=== PATIENT | female | born 1945 | race Caucasian/White ===

== ENCOUNTER 2022-07-12 10:48 | Observation (INO) | payer OTHER, SELFPAY ==
[2022-07-12] VITALS (22 sets, daily range): BP systolic 129–161; BP diastolic 60–95; PULSE 55–82; RESP 16–20; TEMP 35.7–36.9; O2SAT 93–100; BMI 24.4; BMI 25.5
--- NOTE | 2022-07-12 11:18 | ED_ITS ---
HPI - Dizziness General Time Seen by Provider: 11:19 Date Seen: 07/12/22 Chief Complaint: Dizziness/Vertigo Stated Complaint: numbness on RT side and dizzy Time Seen by Provider: 07/12/22 11:18 Source: patient, RN notes reviewed and old records reviewed Mode of arrival: ambulatory Limitations: no limitations History of Present Illness HPI Narrative: Steffi is a very pleasant 77-year-old female with a history of a TIA 25 years ago who comes to the emergency room with complaints of right-sided weakness. Patient is now company by her . Yesterday or TuesdayJuly 11 patient went to the bathroom at approximately 0200 hours and noticed that she was having trouble walking. She states she needed to hold onto the cavanaugh in order to get to and from the bathroom. She notes that at 0300 hours she realized that her equilibrium was quite off and she states that she is not as much dizzy as on balance. She notes that was mainly her right side. She states then she noticed that her right face appear to be somewhat numb and she thought maybe it was drooping. She then had the onset of some arm pain from the right elbow down. She notes that she and her talked and she slept most of the day yesterday. Throughout the day she noticed that the right-sided symptoms were slowly improving. She notes that the dizziness persisted and is still continuing today. We do ascertain that this is more of a lightheadedness/lost in space feeling rather than vertigo. She denies that the room is moving or spinning. Patient had previously been on baby aspirin daily but she ran out of it for approximately 1 and half weeks ago she had ordered it but has not come yet. Patient notes that she has been dealing with some congestion for the past couple a days and occasional shortness of breath with that congestion but denies any chest pain, irregular heartbeat. She has had a history of a stent in the past but no known arrhythmia especially atrial fibrillation. She has not had fever or chills. 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 She states that she has been doing physical therapy and they have noticed that. She notes that she is due for another injection. She does not smoke nor use alcohol. Patient notes that her TIA 25 years ago involved some weakness. She states that she was sitting at a desk and suddenly fell to the left. She does not remember much else about it but all of her symptoms resolved. She was seen at the [facility] following that but never did see Neurology. Related Data Allergies Allergy/AdvReac Type Severity Reaction Status Date / Time tegaderm Allergy Uncoded 07/12/22 11:06 Review of Systems Status of ROS: Reports: 10 or more systems reviewed and unremarkable except as noted in History and below Const: Reports: fatigue (Yesterday); Denies: fever or chills Eyes: Denies: change in vision, blurry vision, blind spots or light sensitivity ENMT: Denies: throat pain, neck pain, throat swelling, difficulty swallowing or vertigo Cardio: Reports: lightheadedness; Denies: chest pain, palpitations or swelling of feet/ankles Resp: Reports: cough; Denies: wheezing or stridor GI: Denies: abdominal pain, nausea, vomiting, diarrhea or difficulty swallowing : Denies: painful urination Musculo: Denies: neck pain Integ/Breast: Denies: rash Neuro: Reports: weakness in extremities, lack of coordination and dizziness; Denies: headache, numbness in extremities, vertigo, confusion or slurred speech Endo: Reports: fatigue (Yesterday) Allergy/Immuno: Denies: throat swelling or wheezing PFSH PFSH Social History Smoking Status: Never smoker Do you use any of these nicotine containing products: None Second hand tobacco smoke exposure: No How often do you have a drink containing alcohol: never How often do you have six or more drinks on one occasion: Never AUDIT-C Alcohol total score: 0 Non-prescribed substance use: denies use service: No Exam Narrative: Exam Narrative: Patient is alert and oriented. Very pleasant. Normal speech and mentation. EOM is full pupils are small but react to light. Visual pritchett are intact- initially I thought there was perhaps decrease in peripheral vision on the upper right quadrant but retesting does not confirm this. Face is symmetrical with eyebrow raise smile tongue is midline. Neck is supple. Right head rotation shows a very subtle weakness. Right upper ext extremity flexion shows a very subtle weakness. Romberg is negative. Finger to nose is intact. Abdomen soft nontender. Lower extremities show very subtle weakness on dorsiflexion have the right ankle. There is intermittent weakness with plantar flexion of the right ankle and great toe. Heart with regular rate and rhythm and lungs are clear to auscultation. Const: Vital Signs, click to edit/add: Vital Signs - 24 hr 07/12/22 11:06 07/12/22 11:21 07/12/22 11:30 Temperature 96.3 F L Pulse Rate 59 L 63 Pulse Rate [Pulse Oximeter] 63 Respiratory Rate 18 Blood Pressure Blood Pressure [Ri ght Upper Arm] 161/95 H Pulse Oximetry 97 98 98 Oxygen Delivery Me thod Room Air 07/12/22 11:32 07/12/22 12:03 07/12/22 12:16 Temperature Pulse Rate 64 55 L 61 Pulse Rate [Pulse Oximeter] Respiratory Rate Blood Pressure 142/76 H Blood Pressure [Ri ght Upper Arm] Pulse Oximetry 98 96 95 Oxygen Delivery Me thod 07/12/22 12:30 07/12/22 12:36 07/12/22 12:54 Temperature Pulse Rate 60 62 62 Pulse Rate [Pulse Oximeter] Respiratory Rate Blood Pressure Blood Pressure [Ri ght Upper Arm] Pulse Oximetry 96 95 96 Oxygen Delivery Me thod 07/12/22 13:03 07/12/22 13:15 07/12/22 13:30 Temperature Pulse Rate 57 L 60 Pulse Rate [Pulse Oximeter] Respiratory Rate Blood Pressure Blood Pressure [Ri ght Upper Arm] Pulse Oximetry 100 96 98 Oxygen Delivery Me thod 07/12/22 14:18 07/12/22 14:30 07/12/22 14:36 Temperature Pulse Rate 75 57 L 60 Pulse Rate [Pulse Oximeter] Respiratory Rate Blood Pressure Blood Pressure [Ri ght Upper Arm] Pulse Oximetry 93 96 96 Oxygen Delivery Nj thod 07/12/22 14:45 07/12/22 15:42 Temperature 97 F L Pulse Rate 60 Pulse Rate [Pulse Oximeter] Respiratory Rate 18 Blood Pressure Blood Pressure [Ri ght Upper Arm] 153/73 H Pulse Oximetry 97 97 Oxygen Delivery Me thod Room Air Documenting provider has reviewed patient's vital signs: yes Eye: Direct Ophthalmoscopy: no photophobia Course Course Hospital Course: At this time I am fearful that patient experienced stroke yesterday morning. We are obviously greater than 30 hours out from the initial event. Will obtain head CT, plan for aspirin if that is negative for any hemorrhagic event and then will pursue MRI of the brain. Patient does tell me that she is claustrophobic and therefore will pre treat with Ativan. Will leave her on the library monitor and draw labs to include CBC, comprehensive, CRP, COVID, troponin and chest x- ray. Reevaluation(s) Reevaluation #1: Patient has continued to remain stable. No worsening symptoms. Consultations Consultation #1: At the pleasure of speaking to Dr. Tung Vazquez Neurology. 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 Recommends loading dose of Plavix at 300 mg as well as aspirin 324 mg p.o. suggests aspirin and Plavix to be continued for 30 days. Vital Signs Vital signs: Initial Vital Signs Temperature 96.3 F L 07/12/22 11:06 Temperature Source Temporal Artery Scan 07/12/22 11:06 Pulse Rate 63 07/12/22 11:06 Pulse Rhythm Regular 07/12/22 11:06 Respiratory Rate 18 07/12/22 11:06 Blood Pressure 161/95 H 07/12/22 11:06 Blood Pressure Mean 117 H 07/12/22 11:06 Blood Pressure Position Supine 07/12/22 11:06 Pulse Oximetry 97 07/12/22 11:06 Oxygen Delivery Method Room Air 07/12/22 11:06 Vital Signs Temperature 96.3 F L 07/12/22 11:06 Pulse Rate 63 07/12/22 11:06 Respiratory Rate 18 07/12/22 11:06 Blood Pressure 161/95 H 07/12/22 11:06 Pulse Oximetry 97 07/12/22 11:06 Oxygen Delivery Method Room Air 07/12/22 11:06 Temperature 97 F L 07/12/22 15:42 Pulse Rate 60 07/12/22 14:45 Respiratory Rate 18 07/12/22 15:42 Blood Pressure 153/73 H 07/12/22 15:42 Pulse Oximetry 97 07/12/22 15:42 Oxygen Delivery Method Room Air 07/12/22 15:42 MDM - Dizziness MDM Narrative Medical decision making narrative: 1. [id number]-[id number] weakness is very subtle and per patient report improving from yesterday morning. EKG sinus rhythm without any arrhythmia. CT/CTA without any acute findings. MR without any acute stroke. 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 Patient noted to have stopped her aspirin a week and a half ago. She was given aspirin 324 mg p.o. after the negative CT. She will now have Plavix 300 mg loading dose. Patient will be admitted to the hospital per neurologist suggestion. They do not feel that there is a need for echocardiogram. EKG reassuring. Recommends 30 days of Plavix 75 mg an aspirin 324 mg. After 30 days may decrease to baby aspirin daily. 2. Disposition -admit to observation. Dr. Francesco siddiqi hospitalist on-call. Medical Records Attestation: I reviewed the patient's medical records. Lab Data Attestation: I reviewed the patient's lab results. Labs: Lab Results 07/12/22 07/12/22 Range/Units 11:46 12:00 WBC 5.12 (4.50-11.00) K/uL RBC 4.53 (4.00-5.20) m/uL Hgb 13.7 (12.0-16.0) gm/dL Hct 40.5 (33.0-51.0) % MCV 89 (80-100) fL MCH 30 (26-34) pg MCHC 34 (32-36) gm/dL RDW Coeff of Darlyn 12.3 (11.5-15.5) % Plt Count 153 (140-440) K/uL Neut % (Auto) 39.3 L (42.0-72.0) % Lymph % (Auto) 44.7 H (20-44) % Deuel % (Auto) 8.2 (0.0-11.0) % Eos % (Auto) 7.2 H (0.0-7.0) % Baso % (Auto) 0.4 (0.0-3.0) % Neut # (Auto) 2.00 (1.7-7.0) K/uL Lymph # (Auto) 2.30 (0.90-2.90) K/uL Deuel # (Auto) 0.40 (0.00-0.90) K/UL Eos # (Auto) 0.40 (0.00-0.50) K/uL Baso # (Auto) 0.02 (0.00-0.30) K/uL Sodium 138 (135-149) mmol/L Potassium 4.5 (3.6-5.1) mmol/L Chloride 103 (96-114) mmol/L Carbon Dioxide 27 (20-32) mmol/L BUN 12 (7-30) mg/dL Creatinine 0.7 (0.5-1.5) mg/dL Estimated Creat Clear 45.50 Estimated GFR 90 ml/min Glucose 125 H (60-115) mg/dL Calcium 9.3 (8.4-10.6) mg/dL Total Bilirubin 1.0 (0.1-1.5) mg/dL AST 24 (12-35) U/L ALT 20 (4-35) U/L Alkaline Phosphatase 74 (40-150) U/L C-Reactive Protein 0.5 (0.5-1.0) mg/dL Total Protein 7.8 (6.0-8.3) g/dL Albumin 4.8 (3.3-5.0) g/dL SARS-CoV-2 (PCR) Negative SARS-CoV-2 (Negative) Influenza Type A (PCR) Negative PCR FLU A (Negative) Influenza Type B (PCR) Negative PCR FLU B (Negative) POC Troponin I 0.00 L (0.01-0.04) ng/ml Imaging Data Chest x-ray: Attestation: I have reviewed the pertinent imaging results. My impression: No evidence widened mediastinum or pneumonia Radiologist's impression: HEART AND MEDIASTINUM: The heart size is normal. The mediastinal contour appears normal for patient age. LUNGS AND PLEURAL SPACES: The lungs appear normal.The pleural spaces are unremarkable. OSSEOUS STRUCTURES: Age-appropriate appearance. No acute focal finding. IMPRESSION: Normal single-view chest radiograph. CT scan - head: Attestation: I have reviewed the pertinent imaging results. My impression: No acute bleed on my read Radiologist's impression: The brain shows no sign of mass lesion, mass effect, hemorrhage, or edema. There are involutional changes. There is mild cortical atrophy and there is mild white matter disease. There is no hydrocephalus. Nonacute appearing subcortical lacunar infarct in the anterior limb of the right internal capsule similar to the remote exam. The visualized portions of the orbits are normal in appearance. The osseous structures are normal in appearance with no sign of abnormality in the skull base or calvarium. IMPRESSION: Involutional changes consisting of atrophy and white matter disease. Nonacute subcortical infarct. No acute appearing finding when compared to January 25, 2012 there There is scattered intracranial atherosclerotic disease without significant stenosis. There is normal opacification of the intracranial vasculature. There is no large vessel occlusion. No aneurysm is identified. IMPRESSION: Unremarkable head CTA. No large vessel occlusion. MRI - head: Attestation: I have reviewed the pertinent imaging results. Radiologist's impression: Prominence of the ventricles and sulci compatible with minimal diffuse cerebral volume loss. No mass effect or midline shift. Scattered and patchy FLAIR hyperintensities in the supratentorial white matter and chichi, typical for [id number]-ssqhvtod chronic microvascular ischemic changes. No diffusion restriction to suggest acute infarction. No intracranial hemorrhage or pathologic extra-axial fluid collection. The major arterial flow voids of the skullbase are preserved. Thinning of the ocular lenses. Minimal paranasal sinus mucosal thickening. Trace right mastoid fluid. IMPRESSION: 1. No acute infarction, mass effect, or intracranial hemorrhage. 2. Tedf-dq-xxpzricc chronic microvascular ischemic changes. Neck angiogram: Attestation: I have reviewed the pertinent imaging results. Radiologist's impression: There is carotid atherosclerosis bilaterally. There is a severe stenosis at the origin of the right ICA (70% by NASCET). There is no significant left carotid artery stenosis or dissection. There is a severe left vertebral artery origin stenosis. There is no significant right vertebral artery stenosis or dissection. The soft tissues of the neck are within normal limits. Degenerative changes are noted in the cervical spine. IMPRESSION: 1. Severe right ICA origin stenosis, 70% by NASCET. 2. Severe left vertebral artery origin stenosis. ECG Data Attestation: I personally reviewed and interpreted this ECG as follows: ECG interpretation date: 07/12/22 Interpretation: EKG 1. By my read shows normal sinus rhythm at a rate of 60. Do not note any acute ST or T-wave changes. QT PA intervals within normal limits. Discharge Plan Discharge Clinical Impression: Acute CVA (cerebrovascular accident), Right sided weakness Patient Disposition: Admitted As Inpatient Condition: Unchanged
--- NOTE | 2022-07-12 11:46 | CRLHL7_ITS ---
For Patients: As a result of the Century Cures Act, medical imaging exams and procedure reports are released immediately into your electronic medical record. You may view this report before your referring provider. If you have questions, please contact your health care provider. INDICATION: Clinical signs and symptoms of stroke/TIA. Right facial and arm numbness times 24 hours, getting better. COMPARISON: January 25, 2012 TECHNIQUE: CT examination of the head was performed as axial sections without intravenous contrast. Images were obtained from the vertex of the skull through the skull base. Please note that all CT scans at this facility use dose modulation, iterative reconstruction, and/or weight-based dosing when appropriate to reduce radiation dose to as low as reasonably achievable. FINDINGS: The brain shows no sign of mass lesion, mass effect, hemorrhage, or edema. There are involutional changes. There is mild cortical atrophy and there is mild white matter disease. There is no hydrocephalus. Nonacute appearing subcortical lacunar infarct in the anterior limb of the right internal capsule similar to the remote exam. The visualized portions of the orbits are normal in appearance. The osseous structures are normal in appearance with no sign of abnormality in the skull base or calvarium. IMPRESSION: Involutional changes consisting of atrophy and white matter disease. Nonacute subcortical infarct. No acute appearing finding when compared to January 25, 2012 there Please note that all CT scans at this facility use dose modulation, iterative reconstruction, and/or weight-based dosing when appropriate to reduce radiation dose to as low as reasonably achievable. Dictated by Gilmer Corral MD @ 07/12/2022 1:10:42 PM (Electronically Signed)
--- NOTE | 2022-07-12 11:46 | CRLHL7_ITS ---
For Patients: As a result of the Century Cures Act, medical imaging exams and procedure reports are released immediately into your electronic medical record. You may view this report before your referring provider. If you have questions, please contact your health care provider. INDICATION: Acute stroke, off balance, right facial and arm numbness. TECHNIQUE: CTA head with contrast bolus tracking, 3D angiographic rendering using maximum intensity projection (MIP) and images permanently archived. FINDINGS: There is scattered intracranial atherosclerotic disease without significant stenosis. There is normal opacification of the intracranial vasculature. There is no large vessel occlusion. No aneurysm is identified. IMPRESSION: Unremarkable head CTA. No large vessel occlusion. Please note that all CT scans at this facility use dose modulation, iterative reconstruction, and/or weight-based dosing when appropriate to reduce radiation dose to as low as reasonably achievable. Dictated by Ranulfo Dias MD @ 07/12/2022 1:56:39 PM (Electronically Signed)
--- NOTE | 2022-07-12 11:46 | CRLHL7_ITS ---
For Patients: As a result of the Century Cures Act, medical imaging exams and procedure reports are released immediately into your electronic medical record. You may view this report before your referring provider. If you have questions, please contact your health care provider. INDICATION: Acute stroke, off balance, right facial and arm numbness. TECHNIQUE: CTA neck with contrast bolus tracking, 3D angiographic rendering using maximum intensity projection (MIP) and images permanently archived. FINDINGS: There is carotid atherosclerosis bilaterally. There is a severe stenosis at the origin of the right ICA (70% by NASCET). There is no significant left carotid artery stenosis or dissection. There is a severe left vertebral artery origin stenosis. There is no significant right vertebral artery stenosis or dissection. The soft tissues of the neck are within normal limits. Degenerative changes are noted in the cervical spine. IMPRESSION: 1. Severe right ICA origin stenosis, 70% by NASCET. 2. Severe left vertebral artery origin stenosis. Please note that all CT scans at this facility use dose modulation, iterative reconstruction, and/or weight-based dosing when appropriate to reduce radiation dose to as low as reasonably achievable. Dictated by Ranulfo Dias MD @ 07/12/2022 2:04:33 PM (Electronically Signed)
--- NOTE | 2022-07-12 11:57 | CRLHL7_ITS ---
For Patients: As a result of the Century Cures Act, medical imaging exams and procedure reports are released immediately into your electronic medical record. You may view this report before your referring provider. If you have questions, please contact your health care provider. INDICATION: Neurologic abnormalities COMPARISON: July 28, 2018 TECHNIQUE: A single view of the chest was acquired FINDINGS: TUBES AND LINES: None. HEART AND MEDIASTINUM: The heart size is normal. The mediastinal contour appears normal for patient age. LUNGS AND PLEURAL SPACES: The lungs appear normal.The pleural spaces are unremarkable. OSSEOUS STRUCTURES: Age-appropriate appearance. No acute focal finding. IMPRESSION: Normal single-view chest radiograph. Dictated by Gilmer Corral MD @ 07/12/2022 2:09:31 PM (Electronically Signed)
[2022-07-12 12:27] LABS: Albumin* 4.8 g/dL (3.3-5.0); Basophils Absolute Auto 0.02 K/uL (0.00-0.30); Basophils Percent Auto 0.4 % (0.0-3.0); Chloride* 103 mmol/L (96-114); Eosinophils Percent Auto 7.2 % (0.0-7.0); Hematocrit 40.5 % (33.0-51.0); Hemoglobin* 13.7 gm/dL (12.0-16.0); Immature Granulocytes Abs Auto 0.01 K/uL (0.00-0.30); Immature Granulocytes Pct Auto 0.2 %; Lymphocytes Percent Auto 44.7 % (20-44); Mean Corpuscular HGB Conc 34 gm/dL (32-36); Mean Corpuscular Hemoglobin 30 pg (26-34); Mean Corpuscular Volume 89 fL (80-100); Monocytes Percent Auto 8.2 % (0.0-11.0); Neutrophils Percent Auto 39.3 % (42.0-72.0); Platelet Count* 153 K/uL (140-440); RDW Coefficient of Variation % 12.3 % (11.5-15.5); Red Blood Count 4.53 m/uL (4.00-5.20); Sodium* 138 mmol/L (135-149); White Blood Count* 5.12 K/uL (4.50-11.00)
[2022-07-12 12:28] LABS: Potassium* 4.5 mmol/L (3.6-5.1); Slide Review Reflex No
[2022-07-12 12:30] LABS: Aspartate Amino Transferase* 24 U/L (12-35); Carbon Dioxide* 27 mmol/L (20-32); Creatinine* 0.7 mg/dL (0.5-1.5); Estimated Glomerular Filt Rate 90 ml/min
[2022-07-12 12:31] LABS: Alanine Aminotransferase* 20 U/L (4-35); Alkaline Phosphatase* 74 U/L (40-150); Blood Urea Nitrogen* 12 mg/dL (7-30); Calcium* 9.3 mg/dL (8.4-10.6); Glucose* 125 mg/dL (60-115); Total Protein* 7.8 g/dL (6.0-8.3)
[2022-07-12 12:33] LABS: C Reactive Protein* 0.5 mg/dL (0.5-1.0)
[2022-07-12 12:49] LABS: PCR FLU A Negative PCR FLU A (Negative); PCR FLU B Negative PCR FLU B (Negative)
[2022-07-12 12:59] LABS: SARS PCR* Negative SARS-CoV-2 (Negative)
--- NOTE | 2022-07-12 13:11 | CRLHL7_ITS ---
For Patients: As a result of the Century Cures Act, medical imaging exams and procedure reports are released immediately into your electronic medical record. You may view this report before your referring provider. If you have questions, please contact your health care provider. INDICATION: Right-sided weakness. TECHNIQUE: Multiplanar multisequence noncontrast MR images acquired through the brain. COMPARISON: CT brain 07/12/2022. FINDINGS: Prominence of the ventricles and sulci compatible with minimal diffuse cerebral volume loss. No mass effect or midline shift. Scattered and patchy FLAIR hyperintensities in the supratentorial white matter and chichi, typical for brjo-qd-mtgeyacu chronic microvascular ischemic changes. No diffusion restriction to suggest acute infarction. No intracranial hemorrhage or pathologic extra-axial fluid collection. The major arterial flow voids of the skullbase are preserved. Thinning of the ocular lenses. Minimal paranasal sinus mucosal thickening. Trace right mastoid fluid. IMPRESSION: 1. No acute infarction, mass effect, or intracranial hemorrhage. 2. Aibe-wd-gmilngpt chronic microvascular ischemic changes. Dictated by Phil Forde MD @ 07/12/2022 2:44:04 PM (Electronically Signed)
[2022-07-12] MEDS: ASPIRIN 81 MG TAB.CHEW 324 MG PO (13:26)
[2022-07-12] MEDS: LORazepam 2 MG/ML inj 0.5 MG IVP (13:36)
[2022-07-12] MEDS: CLOPIDOGREL 300 MG TABLET PO (16:17)
--- NOTE | 2022-07-12 16:37 | ED.NURSE ---
Gave report to Bhavani KNOTT, accepted to Med- surg floor. Pt remains vitally stable, no compliants. Denies pain and nausea, denies numbness. Saline locked IV on right side.
--- NOTE | 2022-07-12 18:16 | PM.IMHP1 ---
Hospitalist- H&P: TORY History of Present Illness Date Seen: 07/12/22 Chief complaint: numbness on RT side and dizzy Narrative: Steffi Ron is a 77 year old right-handed female with coronary artery disease and diabetes admitted through the emergency department with 1 and half day history of poor balance and altered sensation in right arm and right face. Patient reports that approximately 1:00 a.m. on Tuesday, 1 and half days ago, she awoke and went to the bathroom. When she did this she felt like her balance was very poor. She had hold onto the cavanaugh and to the counter in the bathroom for balance. About 2 hours later she noticed that she had altered sensation in the right side of her face she did not notice that she had a facial droop. Her did not notice a facial droop but she reports was quite dark during the night and may have been missed. She said her writes face felt different, possibly numb. She felt that she was having some trouble finding words. She did not have any trouble slurring her speech. She also noted that time that her right forearm was causing some discomfort. She is not aware that there was definite weakness she could move her elbow and her wrist on the right and she did not check to see if it was weaker than the left. It was primarily a discomfort that she had there. She did not have any right leg symptoms. During the day yesterday she was aware that she was very tired and spent much the day in bed because she was so sleepy. During the day the symptoms noted above largely resolved. She felt like her balance was getting better. The sensation her face seemed to be back to normal. She did not have any obvious facial droop or weakness. She did note that she developed a pain over the right gnosticism going into the right jaw. This is relatively of abrupt onset and is also resolved. She is not having pain with chewing. She has not previously had a temporal headache. No visual disturbance. No jaw claudication. Her right arm is also normal and she does not feel like she has any weakness in her right arm at this time. She has a remote history of a TIA diagnosed at least 25 years ago. She recalls that she was feeling quite dizzy. She fell out of her chair and landed on the floor. She had a headache at that time. She does not recall getting any further evaluation. She was not hospitalized. She did not see a specialist or get brain imaging. She is not aware of any long-term affects from this. She does have a history of lumbar disc disease and does have lower extremity symptoms from this. Her MRI from last month suggests primarily left-sided radiculopathy. She does have a history of visual loss primarily involving the right eye. Multiple factors of gone into this including a right I branch retinal artery occlusion and ongoing diabetic retinopathy and floaters. She had surgery to remove floaters from her right eye recently with improvement in her vision. She checked her blood sugar once this weekend with a reading of about 150. Blood sugars have otherwise been generally well controlled. Her only diabetes treatment at this time is metformin. Review of Systems Narrative: She reports no other recent illness or injury. Complete review of systems otherwise unremarkable except as noted above [facility] Medical History (Updated 07/12/22 @ 18:41 by Paco Moseley MD) Allergic rhinitis ?J30.9 - Allergic rhinitis, unspecified (ICD-10) Branch retinal artery occlusion ?H34.239 - Retinal artery branch occlusion, unspecified eye (ICD-10) Diabetes mellitus ?E11.9 - Type 2 diabetes mellitus without complications (ICD-10) Diabetic retinopathy ?E11.319 - Type 2 diabetes mellitus with unspecified diabetic retinopathy without macular edema (ICD-10) Gastroesophageal reflux disease ?K21.9 - Gastro-esophageal reflux disease without esophagitis (ICD-10) Hyperlipidemia ?E78.5 - Hyperlipidemia, unspecified (ICD-10) Hypertension ?I10 - Essential (primary) hypertension (ICD-10) Lumbar degenerative disc disease ?M51.36 - Other intervertebral disc degeneration, lumbar region (ICD-10) Nasal bone fx-closed ?S02.2XXA - Fracture of nasal bones, initial encounter for closed fracture (ICD-10) Non-STEMI (non-ST elevated myocardial infarction) ?I21.4 - Non-ST elevation (NSTEMI) myocardial infarction (ICD-10) Normal esophagogastroduodenoscopy (EGD) ?Z01.89 - Encounter for other specified special examinations (ICD-10) Restless legs ?G25.81 - Restless legs syndrome (ICD-10) Stress incontinence ?N39.3 - Stress incontinence (female) (male) (ICD-10) Surgical History (Updated 07/12/22 @ 18:13 by Paco Moseley MD) H/O arthroscopic knee surgery ?Z98.890 - Other specified postprocedural states (ICD-10) H/O colonoscopy ?Z98.890 - Other specified postprocedural states (ICD-10) History of appendectomy ?Z90.49 - Acquired absence of other specified parts of digestive tract (ICD-10) History of cataract surgery ?Z98.49 - Cataract extraction status, unspecified eye (ICD-10) History of hysterectomy ?Z90.710 - Acquired absence of both cervix and uterus (ICD-10) History of tonsillectomy ?Z90.89 - Acquired absence of other organs (ICD-10) Family History (Updated 07/12/22 @ 18:32 by Paco Moseley MD) Mother Uterine cancer Dementia Father Dementia Social History (Updated 07/12/22 @ 18:33 by Paco Moseley MD) Narrative: She lives with her . 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 They live in [place]. She does not drink alcohol. She has a remote history of smoking Smoking Status: Never smoker Do you use any of these nicotine containing products: None Second hand tobacco smoke exposure: No How often do you have a drink containing alcohol: never How often do you have six or more drinks on one occasion: Never AUDIT-C Alcohol total score: 0 Non-prescribed substance use: denies use service: No Meds Home Medications and Allergies Home Medications Medication Instructions Recorded Confirmed Type aspirin 81 mg tablet,delayed 81 mg PO DAILY 07/12/22 07/12/22 History release cyclobenzaprine 5 mg tablet 5 mg PO 3XD PRN 07/12/22 07/12/22 History cyclosporine 0.05 % eye drops in a 1 drp ophthalmic (eye) BID 07/12/22 07/12/22 History dropperette (Restasis) losartan 25 mg tablet 25 mg PO DAILY 07/12/22 07/12/22 History metformin 500 mg tablet 1,000 mg PO BID 07/12/22 07/12/22 History metoprolol tartrate 25 mg tablet 25 mg PO BID 07/12/22 07/12/22 History pantoprazole 40 mg tablet,delayed 40 mg PO DAILY 07/12/22 07/12/22 History release rosuvastatin 40 mg tablet 40 mg PO QPM 07/12/22 07/12/22 History sucralfate 1 gram tablet (Carafate) 1 g PO ACHS 07/12/22 07/12/22 History Allergies Allergy/AdvReac Type Severity Reaction Status Date / Time tegaderm Allergy Uncoded 07/12/22 11:06 Exam Narrative: Exam Narrative: She is alert and appears in no distress. She gives her own history. She is quite fluent. No obvious slurring of her speech or difficulty with word finding or comprehension. Head is without evidence of trauma. Eyes are normal. Status post cataract surgery. Pupils are equal round reactive to light. Extraocular movements are full. Visual pritchett are intact. She has no facial asymmetry. She has no apparent numbness in either 5 side of her face. Tongue is midline and has normal movement. Oropharynx is normal. She has no tenderness over her temporal arteries, temples or jaw on either side. Neck is supple without mass or adenopathy. Respirations are clear to auscultation. Breathing is unlabored. Cardiovascular: S1, S2, 2/6 systolic ejection murmur heard best at the right upper sternal border. No gallop or rub. Regular rate and rhythm. Abdomen: Bowel sounds active. Abdomen is soft without tenderness or mass. Upper extremities are without obvious trauma. She moves upper extremities well. She has full and symmetric strength in shoulder flexion and extension, elbow flexion and extension, wrist flexion extension, finger extension and [place] strength bilaterally. Finger nose finger is equal an accurate bilaterally. No pronator drift. Intact sensation in both upper extremities. Rapid finger movements are symmetric. She does note that touching her thumb to her fingertips on the right hand causes discomfort at the base of her right thumb. No apparent weakness there. Lower extremity examination notable for equal and full strength in hip flexion , knee flexion and extension, ankle dorsiflexion and plantar flexion and great toe dorsiflexion bilaterally. Intact sensation in both lower extremities. Heel-hankins symmetric and normal. Intact pedal pulses. Const: Vital Signs, click to edit/add: Vital Signs - 24 hr 07/12/22 11:06 07/12/22 11:21 07/12/22 11:30 Temperature 96.3 F L Pulse Rate 59 L 63 Pulse Rate [Pulse Oximeter] 63 Respiratory Rate 18 Blood Pressure Blood Pressure [Ri ght Upper Arm] 161/95 H Pulse Oximetry 97 98 98 Oxygen Delivery Me thod Room Air 07/12/22 11:32 07/12/22 12:03 07/12/22 12:16 Temperature Pulse Rate 64 55 L 61 Pulse Rate [Pulse Oximeter] Respiratory Rate Blood Pressure 142/76 H Blood Pressure [Ri ght Upper Arm] Pulse Oximetry 98 96 95 Oxygen Delivery Tn thod 07/12/22 12:30 07/12/22 12:36 07/12/22 12:54 Temperature Pulse Rate 60 62 62 Pulse Rate [Pulse Oximeter] Respiratory Rate Blood Pressure Blood Pressure [Ri ght Upper Arm] Pulse Oximetry 96 95 96 [facility] 07/12/22 13:03 07/12/22 13:15 07/12/22 13:30 Temperature Pulse Rate 57 L 60 Pulse Rate [Pulse Oximeter] Respiratory Rate Blood Pressure Blood Pressure [Ri ght Upper Arm] Pulse Oximetry 100 96 98 [facility] 07/12/22 14:18 07/12/22 14:30 07/12/22 14:36 Temperature Pulse Rate 75 57 L 60 Pulse Rate [Pulse Oximeter] Respiratory Rate Blood Pressure Blood Pressure [Ri ght Upper Arm] Pulse Oximetry 93 96 96 [facility] 07/12/22 14:45 07/12/22 15:42 07/12/22 16:18 Temperature 97 F L Pulse Rate 60 62 Pulse Rate [Pulse Oximeter] Respiratory Rate 18 20 Blood Pressure 129/65 Blood Pressure [Ri ght Upper Arm] 153/73 H Pulse Oximetry 97 97 98 [facility] Documenting provider has reviewed patient's vital signs: yes Hospitalist - H&P: Result Labs Labs: Short CBC 07/12/22 Range/Units 12:00 WBC 5.12 (4.50-11.00) K/uL Hgb 13.7 (12.0-16.0) gm/dL Hct 40.5 (33.0-51.0) % Plt Count 153 (140-440) K/uL BMP 07/12/22 12:00 Sodium 138 Potassium 4.5 Chloride 103 Carbon Dioxide 27 BUN 12 Creatinine 0.7 Glucose 125 H Calcium 9.3 Liver Function 07/12/22 Range/Units 12:00 Total Bilirubin 1.0 (0.1-1.5) mg/dL AST 24 (12-35) U/L ALT 20 (4-35) U/L Alkaline Phosphatase 74 (40-150) U/L Albumin 4.8 (3.3-5.0) g/dL Imaging CT scan - head: Radiologist's impression: Acute stroke, off balance, right facial and arm numbness. TECHNIQUE: CTA head with contrast bolus tracking, 3D angiographic rendering using maximum intensity projection (MIP) and images permanently archived. FINDINGS: There is scattered intracranial atherosclerotic disease without significant stenosis. There is normal opacification of the intracranial vasculature. There is no large vessel occlusion. No aneurysm is identified. IMPRESSION: Unremarkable head CTA. No large vessel occlusion. MR Brain: Radiologist's impression: NDICATION: Right-sided weakness. TECHNIQUE: Multiplanar multisequence noncontrast MR images acquired through the brain. COMPARISON: CT brain 07/12/2022. FINDINGS: Prominence of the ventricles and sulci compatible with minimal diffuse cerebral volume loss. No mass effect or midline shift. Scattered and patchy FLAIR hyperintensities in the supratentorial white matter and chichi, typical for [id number] chronic microvascular ischemic changes. No diffusion restriction to suggest acute infarction. No intracranial hemorrhage or pathologic extra-axial fluid collection. The major arterial flow voids of the skullbase are preserved. Thinning of the ocular lenses. Minimal paranasal sinus mucosal thickening. Trace right mastoid fluid. IMPRESSION: 1. No acute infarction, mass effect, or intracranial hemorrhage. 2. [id number] chronic microvascular ischemic changes. Assessment and Plan Assessment and plan (1) Acute CVA (cerebrovascular accident): Problem comment: Dr. Burgos spoke with Stroke Neurology at [facility]. They felt it is possible that she has a very small pontine stroke despite normal neuro imaging. They recommended observation overnight. My evaluation did not show any significant focal deficits. Will treat as a stroke patient with aspirin and Plavix, statin, permissive hypertension for the next couple days. Stroke Neurology did not think an echocardiogram is needed. This does not appear to be cardioembolic stroke. They did recommend aspirin 325 mg daily plus Plavix 75 mg daily for 1 month followed by aspirin 81 mg daily indefinitely. Status: Acute (2) Hypertension: Problem comment: Permissive hypertension Status: Acute (3) Diabetes mellitus: Problem comment: Apparently has been well controlled. Status: Acute Plan Admit overnight for possibility of a small pontine stroke not seen on imaging. Stroke Neurology is concerned about possibility of deterioration given this type of stroke. Will monitor overnight. If doing well probably discharge in the morning. Stroke management as outlined above. Total time spent is 75 minutes, 50 minutes in coordination of care discussing with patient and other providers ongoing evaluation management of stroke
--- NOTE | 2022-07-12 19:59 | PC.NURSE ---
Addendum entered by Florentino Whitley RN 07/12/22 20:02: Last BM was this morning, reports diarrhea but it is new and only x1. Usually takes eye drops but thye are at home. Has history of TIA 25 years ago with sent placed. Original Note: [id number] Shift Summary? 256 L.F.?77 R sided weakness and dizziness? Obs. Pt?s symptoms started at 3am Tuesday 07/11. At this point denies weakness. Strength and facial expressions symmetrical. Some dizziness with ambulation. Reminded to call to go to bathroom. Vitals stable. Room air. DM2, therapeutic diet. No SSI or BG checks. Has chronic backpain for pinched discs- takes Flexeril. Requesting melatonin for this evening. Family at bedside. Oriented x4. No skin concerns. Denies pain. No numbness or tingling. No nausea or vomiting.?
--- NOTE | 2022-07-12 20:10 | PC.NURSE ---
[id number] Shift Summary? 256 L.F.?77 R sided weakness and dizziness? Obs. Pt?s symptoms started at 3am Tuesday 07/11. Dizzy while ambulating to bathroom and feeling week. At this point denies weakness. Strength and facial expressions symmetrical. Had TIA 25 years ago with stint placed.?Some dizziness with ambulation. Reminded to call to go to bathroom. Vitals stable. Room air. DM2, therapeutic diet. No SSI or BG checks. Has chronic backpain for pinched discs- takes Flexeril. Requesting melatonin for this evening. Family at bedside. Oriented x4. No skin concerns. Denies pain. No numbness or tingling. No nausea or vomiting.? Had diarrhea this morning which is new. Has lost 20 pounds in last 6 months.?
[2022-07-12] MEDS: SUCRALFATE 1 GM TABLET PO (20:36)
[2022-07-12] MEDS: ROSUVASTATIN CALCIUM 10 MG TABLET 40 MG PO (20:36)
[2022-07-12] MEDS: MELATONIN 3 MG TABLET PO (20:36)
[2022-07-12] MEDS: METFORMIN 500 MG TABLET 1000 MG PO (20:36)
[2022-07-12] MEDS: CYCLOBENZAPRINE HCL 10 MG TABLET 5 MG PO (20:36)
[2022-07-12] MEDS: SODIUM CHLORIDE 0.9 % (FLUSH) 10 ML SYRINGE 5 ML IVF (20:37)
--- NOTE | 2022-07-12 21:58 | PC.NURSE ---
Pt calm and cooperative during shift ([id number]). Pt up to bathroom with SBA. Pt had no complaints of pain. Pt alert and oriented. Pt has had no weakness during shift.
[2022-07-13 03:05] VITALS: BP 149/71; PULSE 82; RESP 14; TEMP 36.4; O2SAT 93
--- NOTE | 2022-07-13 06:31 | PC.NURSE ---
Pt alert and oriented x3. Afebrile. Pt denies pain, SOB, chest pain, and N/V. Pt did report 2/10 headache around 0300, PRN Tylenol offered, pt refused.?Pt is up SBA, voiding, tolerating regular diet.?
[2022-07-13 06:59] LABS: Glucose* 137 mg/dL (60-115)
[2022-07-13] MEDS: SUCRALFATE 1 GM TABLET PO (07:01)
[2022-07-13 07:28] LABS: Erythrocyte SedimentationRate* 4 mm/hr (2-20)
[2022-07-13 08:00] VITALS: BP 126/66; PULSE 81; RESP 16; TEMP 36.6; O2SAT 93
[2022-07-13] MEDS: OMEPRAZOLE 20 MG CAPSULE DR 40 MG PO (09:19)
[2022-07-13] MEDS: METFORMIN 500 MG TABLET 1000 MG PO (09:19)
[2022-07-13] MEDS: ASPIRIN EC 325 MG TABLET PO (09:20)
[2022-07-13] MEDS: CLOPIDOGREL 75 MG TABLET PO (09:20)
[2022-07-13] MEDS: SODIUM CHLORIDE 0.9 % (FLUSH) 10 ML SYRINGE 5 ML IVF (09:21)
[2022-07-13 11:00] VITALS: BP 133/70; PULSE 85; RESP 18; TEMP 36.4; O2SAT 95
--- NOTE | 2022-07-13 14:35 | PM.DS1 ---
DS: Providers Provider Time Seen by Provider: 09:38 Date Seen: 07/13/22 Date of admission: 07/12/22 16:42 Primary care physician: Not a Local Provider Admitting Clinician: Paco Moseley MD Attending Physician on discharge: Gabriela West MD Date of Discharge: 07/13/22 DS: Diagnosis Discharge Diagnosis (1) Diabetes mellitus: Status: Acute Problem details: Apparently has been well controlled. (2) Hypertension: Status: Acute Problem details: Permissive hypertension (3) Acute CVA (cerebrovascular accident): Status: Acute Problem details: Dr. Burgos spoke with Stroke Neurology at [facility]. They felt it is possible that she has a very small pontine stroke despite normal neuro imaging. They recommended observation overnight. My evaluation did not show any significant focal deficits. Will treat as a stroke patient with aspirin and Plavix, statin, permissive hypertension for the next couple days. Stroke Neurology did not think an echocardiogram is needed. This does not appear to be cardioembolic stroke. They did recommend aspirin 325 mg daily plus Plavix 75 mg daily for 1 month followed by aspirin 81 mg daily indefinitely. (4) Right sided weakness: Status: Acute DS: Summary Hospital Course Hospital Course: This is a 77-year-old female with history of coronary disease and TIA who presented after a day and a half of poor balance and altered sensation of the right arm and face. She actually described it as pain, but said that it is difficult for her to the sometimes tell difference between pain and other symptoms on the right because of a pinched nerve. She had to hold onto cavanaugh and the countertop for ambulation due to ataxia. She had a head CT, head CTA and brain MRI yesterday. These were fairly unremarkable. Dr. Luz spoke with the stroke neurologist at [facility] felt it was likely a very small pontine stroke and recommended aspirin and Plavix. She was started on aspirin and Plavix and is already on rosuvastatin as an outpatient. She has done well overnight with no new symptoms. Due to a murmur heard yesterday and today I obtained an echocardiogram as there was no history of a murmur prior to this admission. Echocardiogram revealed normal LVEF and size with trace tricuspid regurgitation of 25 mm Hg plus RAP. This is a preliminary read. She is discharged home today in stable condition on aspirin, Plavix and a statin. Time Spent with Patient Time attestation: Total time spent providing and/or coordinating discharge services: Exam Narrative: Exam Narrative: General: No acute distress. Awake, alert, oriented x3. No pallor. No jaundice. Oropharynx: Clear. Mucous membranes moist. Cardiovascular: Regular rate and rhythm. Grade 1/6 systolic murmur loudest at the left upper sternal border. Respiratory: Clear to auscultation bilaterally. No wheezes or crackles. Abdomen: Bowel sounds present. Soft, nondistended, nontender. Extremities: There are no focal deficits. Romberg is negative. Gait is within normal limits. Cranial nerves 2-12 are intact. Extraocular movements are full. No nystagmus. No facial asymmetry. Tongue is midline. Peripheral vision and vision are grossly intact. Strength is 4/5 right hand and foot otherwise 5/5 in the rest of the right extremities and both left extremities. Light touch sensation is intact in face body and extremities. Coordination is intact in upper and lower extremities. Const: Vital Signs, click to edit/add: Vital Signs - 24 hr 07/12/22 14:36 07/12/22 14:45 07/12/22 15:42 Temperature 97 F L Pulse Rate 60 60 Pulse Rate [Left A pical] Pulse Rate [Pulse Oximeter] Respiratory Rate 18 Blood Pressure Blood Pressure [Ri ght Arm] Blood Pressure [Ri ght Upper Arm] 153/73 H Pulse Oximetry 96 97 [facility] 07/12/22 16:18 07/12/22 16:50 07/12/22 18:22 Temperature 97.9 F 97.9 F Pulse Rate 62 Pulse Rate [Left A pical] Pulse Rate [Pulse Oximeter] 67 67 Respiratory Rate 20 20 16 Blood Pressure 129/65 Blood Pressure [Ri ght Arm] 139/68 139/68 Blood Pressure [Ri ght Upper Arm] Pulse Oximetry 98 98 98 Oxygen Delivery [facility] Room Air Room Air 07/12/22 19:29 07/12/22 23:00 07/12/22 23:00 Temperature 98.5 F 97.9 F Pulse Rate Pulse Rate [Left A pical] Pulse Rate [Pulse Oximeter] 82 66 66 Respiratory Rate 16 16 18 Blood Pressure Blood Pressure [Ri ght Arm] 147/60 H 131/66 Blood Pressure [Ri ght Upper Arm] Pulse Oximetry 94 95 Oxygen Delivery Me thod Room Air Room Air 07/13/22 03:05 07/13/22 08:00 Temperature 97.6 F 97.9 F Pulse Rate Pulse Rate [Left A pical] 81 Pulse Rate [Pulse Oximeter] 82 81 Respiratory Rate 14 16 Blood Pressure Blood Pressure [Ri ght Arm] 149/71 H 126/66 Blood Pressure [Ri ght Upper Arm] Pulse Oximetry 93 93 Oxygen Delivery Me thod Room Air Room Air DS: Data Data Completed and Pending Completed studies during hospitalization: Ordering Physician: Eli Burgos M.D. Date of Service: 07/12/22 Procedure(s): CT head/brain wo con Accession Number(s): [id number] cc: Eli Burgos M.D.; Provider,Not a Local ~ For Patients: As a result of the Cures Act, medical imaging exams and procedure reports are released immediately into your electronic medical record. You may view this report before your referring provider. If you have questions, please contact your health care provider. INDICATION: Clinical signs and symptoms of stroke/TIA. Right facial and arm numbness times 24 hours, getting better. COMPARISON: January 25, 2012 TECHNIQUE: CT examination of the head was performed as axial sections without intravenous contrast. Images were obtained from the vertex of the skull through the skull base. Please note that all CT scans at this facility use dose modulation, iterative reconstruction, and/or weight-based dosing when appropriate to reduce radiation dose to as low as reasonably achievable. FINDINGS: The brain shows no sign of mass lesion, mass effect, hemorrhage, or edema. There are involutional changes. There is mild cortical atrophy and there is mild white matter disease. There is no hydrocephalus. Nonacute appearing subcortical lacunar infarct in the anterior limb of the right internal capsule similar to the remote exam. The visualized portions of the orbits are normal in appearance. The osseous structures are normal in appearance with no sign of abnormality in the skull base or calvarium. IMPRESSION: Involutional changes consisting of atrophy and white matter disease. Nonacute subcortical infarct. No acute appearing finding when compared to January 25, 2012 there Please note that all CT scans at this facility use dose modulation, iterative reconstruction, and/or weight-based dosing when appropriate to reduce radiation dose to as low as reasonably achievable. Dictated by Gilmer Corral MD @ 07/12/2022 1:10:42 PM (Electronically Signed) Ordering Physician: Eli Burgos M.D. Date of Service: 07/12/22 Procedure(s): CT angio head Accession Number(s): [id number] cc: Eli Burgos M.D.; Provider,Not a Local ~ For Patients: As a result of the Cures Act, medical imaging exams and procedure reports are released immediately into your electronic medical record. You may view this report before your referring provider. If you have questions, please contact your health care provider. INDICATION: Acute stroke, off balance, right facial and arm numbness. TECHNIQUE: CTA head with contrast bolus tracking, 3D angiographic rendering using maximum intensity projection (MIP) and images permanently archived. FINDINGS: There is scattered intracranial atherosclerotic disease without significant stenosis. There is normal opacification of the intracranial vasculature. There is no large vessel occlusion. No aneurysm is identified. IMPRESSION: Unremarkable head CTA. No large vessel occlusion. Please note that all CT scans at this facility use dose modulation, iterative reconstruction, and/or weight-based dosing when appropriate to reduce radiation dose to as low as reasonably achievable. Dictated by Ranulfo Dias MD @ 07/12/2022 1:56:39 PM (Electronically Signed) Ordering Physician: Eli Burgos M.D. Date of Service: 07/12/22 Procedure(s): XR chest 1V Accession Number(s): [id number] cc: Eli Burgos M.D.; Provider,Not a Local ~ For Patients: As a result of the Cures Act, medical imaging exams and procedure reports are released immediately into your electronic medical record. You may view this report before your referring provider. If you have questions, please contact your health care provider. INDICATION: Neurologic abnormalities COMPARISON: July 28, 2018 TECHNIQUE: A single view of the chest was acquired FINDINGS: TUBES AND LINES: None. HEART AND MEDIASTINUM: The heart size is normal. The mediastinal contour appears normal for patient age. LUNGS AND PLEURAL SPACES: The lungs appear normal.The pleural spaces are unremarkable. OSSEOUS STRUCTURES: Age-appropriate appearance. No acute focal finding. IMPRESSION: Normal single-view chest radiograph. Dictated by Gilmer Corral MD @ 07/12/2022 2:09:31 PM (Electronically Signed) Ordering Physician: Eli Burgos M.D. Date of Service: 07/12/22 Procedure(s): MR head/brain wo con Accession Number(s): [id number] cc: Eli Burgos M.D.; Provider,Not a Local ~ For Patients: As a result of the Cures Act, medical imaging exams and procedure reports are released immediately into your electronic medical record. You may view this report before your referring provider. If you have questions, please contact your health care provider. INDICATION: Right-sided weakness. TECHNIQUE: Multiplanar multisequence noncontrast MR images acquired through the brain. COMPARISON: CT brain 07/12/2022. FINDINGS: Prominence of the ventricles and sulci compatible with minimal diffuse cerebral volume loss. No mass effect or midline shift. Scattered and patchy FLAIR hyperintensities in the supratentorial white matter and chichi, typical for [id number] chronic microvascular ischemic changes. No diffusion restriction to suggest acute infarction. No intracranial hemorrhage or pathologic extra-axial fluid collection. The major arterial flow voids of the skullbase are preserved. Thinning of the ocular lenses. Minimal paranasal sinus mucosal thickening. Trace right mastoid fluid. IMPRESSION: 1. No acute infarction, mass effect, or intracranial hemorrhage. 2. [id number] chronic microvascular ischemic changes. Dictated by Phil Forde MD @ 07/12/2022 2:44:04 PM (Electronically Signed) 07/12/2022 11:28 a.m. EKG: Normal sinus rhythm. Normal EKG, 60 beats per minute. 07/13/2022 echocardiogram preliminary: Normal LV function and size, trace TR, 25 mm Hg plus RAP. Labs on day of discharge: Labs from last 24 hours 07/13/22 06:21 ESR 4 Glucose 137 H Discharge Plan Discharge Disposition: Home, Self-Care Date of Admission: 07/12/22 16:42 Attending Provider on Discharge: Gabriela West Primary Care Provider: Provider,Not a Local Condition: Unchanged Anticipated Discharge Date/Time: 07/13/22 14:48 Discharge Medications: New clopidogrel 75 mg Tablet 75 mg PO DAILY 30 Days Qty: 30 0RF aspirin 325 mg Tablet,Delayed Release (Dr/Ec) 325 mg PO DAILY 30 Days Qty: 30 0RF Continued metformin 500 mg tablet 1,000 mg PO BID pantoprazole 40 mg tablet,delayed release (DR/EC) 40 mg PO DAILY cyclobenzaprine 5 mg tablet 5 mg PO 3XD PRN cyclosporine [Restasis] 0.05 % dropperette 1 drp ophthalmic (eye) BID rosuvastatin 40 mg tablet 40 mg PO QPM sucralfate [Carafate] 1 gram tablet 1 g PO ACHS Held aspirin 81 mg tablet,delayed release (DR/EC) 81 mg PO DAILY Hold Instructions: Resume on 08/13/22. losartan 25 mg tablet 25 mg PO DAILY Hold Instructions: Resume on 07/16/22. metoprolol tartrate 25 mg tablet 25 mg PO BID Hold Instructions: Resume on 07/16/22. Discharge Orders: Discharge Order (Routine); Ordered 07/13/22 Ordered By: Gabriela West Patient Education: Ischemic Stroke (DC) Additional Instructions: Hold your blood pressure medications for a few days to allow for a higher blood pressure in the setting of stroke. Start taking them again before the weekend. Follow up with neurology in 2-4 weeks. Activity Level: Activity as Tolerated Discharge Diet: Diabetic and Low Fat/Low Cholesterol Follow Up Appointments: Provider,Not a Local [Primary Care Provider] - (as needed) Forms: [employer] Info Instructions
--- NOTE | 2022-07-13 15:45 | PC.NURSE ---
Pt neurologically intact throughout day shift. Echocardiogram completed at bedside, eval by Dr. West and d/c orders pending. Adequate I & 0, IV site discontinued. Report to Tammi KNOTT for evening shift.
== END 2022-07-13 16:00 | disposition home or self-care (01) ==
LOC: ED 15:54 → MEDSURG 16:42
PROVIDERS: Admitting Provider Family Medicine; Emergency Provider Family Medicine; Visit Provider Family Medicine
DX: I63.9 Cerebral infarction, unspecified (principal); G58.9 Mononeuropathy, unspecified; E11.319 Type 2 diabetes mellitus with unspecified diabetic retinopathy without macular edema; R53.1 Weakness; R01.1 Cardiac murmur, unspecified; I07.1 Rheumatic tricuspid insufficiency; Z79.84 Long term (current) use of oral hypoglycemic drugs; Z79.01 Long term (current) use of anticoagulants; Z79.82 Long term (current) use of aspirin; G57.00 Lesion of sciatic nerve, unspecified lower limb; R05.9 Cough, unspecified; K21.9 Gastro-esophageal reflux disease without esophagitis; I10 Essential (primary) hypertension; E78.5 Hyperlipidemia, unspecified; R27.9 Unspecified lack of coordination; M51.36 Other intervertebral disc degeneration, lumbar region; R27.0 Ataxia, unspecified; H34.231 Retinal artery branch occlusion, right eye; F40.240 Claustrophobia; Z98.890 Other specified postprocedural states; R20.8 Other disturbances of skin sensation; Z90.49 Acquired absence of other specified parts of digestive tract; Z95.5 Presence of coronary angioplasty implant and graft; Z90.710 Acquired absence of both cervix and uterus; Z90.89 Acquired absence of other organs; Z87.891 Personal history of nicotine dependence; Z98.49 Cataract extraction status, unspecified eye
CPT/HCPCS: 36415; 70450; 70496; 70498; 70551; 71045; 80053; 82947; 84484; 85025; 85651; 86140; 87631; 93005; 93306; 96374; 99285; A9270; G0378; J2060; Q9967

== ENCOUNTER 2024-12-26 13:38 | Emergency (ER) | payer MEDICARE, SELFPAY ==
--- OUTSIDE RECORDS SUMMARY | 2024-12-26 13:51 | XMS_ITS | Clinical Summary ---
Author Organization [facility] Address [address] [place] [address] Care Team Providers Care Alumni Relations Manager Name Role Phone Stu Garcia MD Primary Care Provider Chaka Quiles MD Unavailable Unavailable Reza Eason MD Unavailable Allergies Active Allergy Reactions Criticality Noted Date Comments Cats (Fur, Dander, Saliva) Itching 10/14/2015 House Dust Runny Nose 10/14/2015 Unlisted Allergen (Include Detail In Comments) Runny Nose 02/13/2016 Outdoor, seasonal allergies Medications Calcium carbonate (OYSTERSHELL CALCIUM) 500 mg tablet Take 1 tablet by mouth once daily. 0 3 Active cholecalciferol (VITAMIN D) 1,000 unit tablet Take 1 tablet by mouth once daily. 0 3 Active blood glucose control, normal (TRUE METRIX LEVEL 2) solnIndications :Uncontrolled type 2 diabetes mellitus with complication, without long-term current use of insulin As directed. 1 Bottle 9 Active cycloSPORINE (RESTASIS) 0.05 % ophthalmic emulsion Place 1 Drop into both eyes every 12 hours. 0 0 Active nitroglycerin (NITROSTAT) 0.4 mg sublingual tabletIndicatio ns:CAD in [place] artery Place 1 Tablet (0.4 mg) under the tongue every 5 minutes if needed for Chest Pain (first choice for chest pain). 24 tablet. 2 Active aspirin enteric coated (ECOTRIN) 325 mg tablet Take 1 Tablet (325 mg) by mouth once daily with a meal. 90 Tablet 3 3 Active medication order composerIndicat ions:Routine adult health maintenance Magnesium Vitamin B2 0 3 Active albuterol HFA (PRO-AIR; VENTOLIN; PROVENTIL) 90 mcg/actuation inhalerIndicati ons:Upper respiratory tract infection, unspecified type Inhale 1-2 Puffs by mouth every 4 hours if needed for Shortness Of Breath or Wheezing (cough). 3 Each 3 4 Active pantoprazole (PROTONIX) 40 mg delayed-release tabletIndicatio ns:Gastroesopha geal reflux disease without esophagitis Take 1 Tablet (40 mg) by mouth once daily. 90 Tablet 2 4 Active Additional Information Patient taking differently:40 mg OralDAILY PRN, GI Upset, Heartburn, Reported on 10/29/2024 rosuvastatin (CRESTOR) 40 mg tabletIndicatio ns:NSTEMI (non-ST elevated myocardial infarction) (HC) Take 1 Tablet (40 mg) by mouth at bedtime. 90 Tablet 4 4 Active losartan (COZAAR) 25 mg tabletIndicatio ns:CAD in [place] Take 1 Tablet (25 mg) by mouth once daily. 90 Tablet 4 4 Active cyclobenzaprine (FLEXERIL) 5 mg tabletIndicatio ns:Sciatica of left side TAKE ONE TABLET BY MOUTH THREE TIMES DAILY NEEDED FOR MUSCLE SPASM 90 Tablet 5 Active metoprolol tartrate (LOPRESSOR) 25 mg tabletIndicatio ns:SVT (supraventricul ar tachycardia) (HC) Take 1 Tablet (25 mg) by mouth two times daily. 5 Active blood sugar diagnostic (Contour Next Test Strips) stripIndication s:Controlled type 2 diabetes mellitus with complication, without long-term current use of insulin (HC) Dispense item covered by pt ins. E11.65 NIDDM type II, uncontrolled - Test 1 time/day 100 Each 3 5 Active Blood-Glucose Meter (Contour Next Meter)Indicatio ns:Controlled type 2 diabetes mellitus with complication, without long-term current use of insulin (HC) Dispense glucose meter, test strips and lancets covered by the patient insurance. Test 1 times per day. 1 Each 5 Active Magnesium 200 mg tab Take 1 Tablet (200 mg) by mouth once daily. 5 Active metFORMIN (GLUCOPHAGE) 500 mg tabletIndicatio ns:Controlled type 2 diabetes mellitus with complication, without long-term current use of insulin (HC) Take 1 Tablet (500 mg) by mouth two times daily with meals. 180 Tablet 1 5 Active blood-glucose meterIndication s:Controlled type 2 diabetes mellitus with complication, without long-term current use of insulin (HC) Dispense meter covered by pts insurance. CONTOUR NEXT ONE 1 Each 5 Active blood sugar diagnostic (Blood Glucose Test) stripIndication s:Controlled type 2 diabetes mellitus with complication, without long-term current use of insulin (HC) Test 1 times per day. For Contour Next One meter 100 Each 12 5 Active lancetsIndicati ons:Controlled type 2 diabetes mellitus with complication, without long-term current use of insulin (HC) Dispense item covered by pt ins. E11.65 NIDDM type II, uncontrolled - Test 1 time/day 100 Each 3 5 Active Active Problems Problem Noted Date Diagnosed Date Bilateral carotid artery stenosis 08/06/2022 Overview (08/06/2022): Carotid Doppler 07/2022 IMPRESSION: 1. Based on the ICA velocities, ICA/CCA ratio, and 2D images there is plaque causing 50-69% stenosis in the right internal carotid artery and there is plaque causing 50-69% stenosis in the left internal carotid artery. 2. Normal antegrade flow within bilateral vertebral arteries. 3. Multiphasic flow within bilateral subclavian arteries. Headache syndrome 08/06/2022 Overview (08/06/2022): Seen Neurologist Coronary artery disease 07/29/2022 CAD in [place] 07/09/2021 Skin macule, erythematous 11/20/2020 Contusion of right foot 11/20/2020 Chronic pain of both knees 01/08/2020 Routine adult health maintenance 12/28/2018 Overview (12/28/2018): Colonoscopy 12/2018 normal biopsies, repeat in 10 years Controlled type 2 diabetes m ellitus with complication, without long-term current use of insulin 09/03/2016 NSTEMI (non-ST elevated myocardial infarction) 0 08/29/2016 Overview (08/31/2016): PCI with OWEN x1 to LCX (100% stenosis) 08/30/16. Started on Plavix x1 year. Type 2 diabetes mellitus with retinopathy 2016 Background diabetic retinopathy 02/24/2016 Cortical senile cataract of both eyes 02/24/2016 Hyperopia of left eye with astigmatism and presb yopia 02/24/2016 Myopia of right eye with astigmatism and presbyo bert 02/24/2016 Presbyopia OU 01/30/2013 BRAO (branch retinal artery occlusion) 9 Restless legs syndrome (RLS) 08/08/2007 Overweight (BMI 25.0-29.9) 07/07/2006 ONYCHOMYCOSIS 10/27/2004 HYPERCHOLESTEROLEMIA, PURE 10/12/1999 ISCHEMIA, TRANSIENT CEREBRAL NOS 10/12/1999 REFLUX, ESOPHAGEAL 10/12/1999 Overview (07/01/2010): EGD 06/2010 normal RHINITIS, ALLERGIC NOS Female stress incontinence Resolved Problems Problem Noted Date Diagnosed Date Resolved Date Chest pain 08/29/2016 09/03/2016 Asymptomatic postmenopausal state 10/14/2015 08/29/2016 Diabetes mellitus 01/30/2013 08/29/2016 Routine general medical exam ination at a health care facility 10/08/2006 09/03/2016 Overview (10/08/2006): colonoscopy 10-07-06 , repeat in 10 yrs Headache(784.0) 06/08/2005 09/03/2016 Overview (07/07/2006): has seen neurology, on indomethacin DEPRESSIVE DISORDER, MAJOR RECUR, UNSPECIFIED 03/16/19 02 07/07/2006 HEMORRHAGE, RETINAL OD 08/06/199902/17 PAIN, CHEST NOS 06/18/2004 OTALGIA NOS 06/18/2004 SCIATICA 06/18/2004 OTITIS EXTERNA 01/27/2005 NSTEMI (non-ST elevated myoc ardial infarction) 08/31/2016 Encounters Date Type Department Care Team Description 11/21/2024 2:00 PM CDT Office Visit [facility] [address] [place] [address] Chiquis Grier MD Follow Up (Stenosis of right carotid artery yearly follow up ) 11/21/2024 12:50 PM CDT - 11/21/2024 11:59 PM CDT Hospital Encounter [facility] [address] [place] [address] Chiquis Grier MD Stenosis of right carotid artery 11/21/2024 Travel 10/29/2024 9:20 AM CDT [facility] [address] [place] [address] Stu Garcia MD Diabetes; Medication List Update (Old sig vs New since decreased so many) 10/29/2024 Travel 10/05/2024 Orders Only [facility] Inpatient Therapies - [facility] Inpatient Rehabilitation Therapies [address] [place] [address] Helena Feliz, STEWARD/STEWARDESS SECOND CLASS <No scans attached> 09/27/2024 8:19 AM CDT - 09/27/2024 11:59 PM CDT Hospital Encounter [facility] - [facility] [address] [place] [address] Klaus Rodriguez-MD Trini Luciano Kristina, STEWARD/STEWARDESS SECOND CLASS from Last 3 Months Immunizations Immunization Administration Dates Next Due COVID-19 vaccine ([facility] 30mcg/0.3mL) NATIVIDAD MERAZ 06/10/2020,05/20/2020 Hepatitis A (Adult) 06/18/2004 Hepatitis B (Peds) 06/18/2004,01/22/2000, 000 Influenza, High-dose Inactivated 019,12/15/2016,02/13/2016,2014,02/02/2014 Influenza, High-dose Quadriv alent Inactivated 11/30/2019 Influenza, IIV3 (Age >=3 years) 01/24/20 14,12/19/2012,02/24/2012,2010,01/06/2010,01/24/2007 Influenza, Inactivated AIIV4 (Age 65+ Years) Preserv Free 01/12/2023,01/22/2022,12/26/2020,2019 Influenza, Inactivated IIV3 (Age 65+ Years) Preserv Free 01/23/2024 Pneumococcal Poly,23-Valent (Pneumovax) 02/24/2012 Pneumococcal conj 13-Valent (Prevnar 13) 10/09/2014 Td (Age >=7 Years) 06/17/1997 Tdap 09/02/2009 Zoster (Shingrix-RZV, recombinant) 11/30/2019, Zoster (Zostavax-ZVL, live) 12/17/2014 Family History Medical History Relation Name Comments Other Father rare blood dis ease Diabetes Maternal Grandfather Heart Disease Maternal Grandfather Diabetes Maternal Grandmother Heart Disease Maternal Grandmother Arthritis Mother Cancer Mother uterine Other Mother glaucoma/sherman ia Genetic Other diabetes - gran dparent/Mother: glaucoma, arthritis, uterine CA~Father: dec in 70s of rare blood dz~GrPrs: DM, CAD~Sibs: NONE~Kids: A\T\W/Mother: glaucoma, arthritis, uterine CA, dementia~Father: dec in 70s of rare blood dz~GrPrs: DM, CAD~Sibs: NONE~Kids: A\T\W Cancer-breast No Family History Cancer-ovarian No Family History Relation Name Status Comments Father s from ra re blood disease Maternal Grandfather Maternal Grandmother Mother Other Paternal Grandfather Paternal Grandmother Social History Tobacco Use Types Packs/Day Years Used Date Smoking Tobacco: Former Cigarettes Smokeless Tobacco: Never Tobacco Cessation:Counseling Given: No Alcohol Use Standard Drinks/Week Comments No 0 (1 standard drink = 0.6 oz pur e alcohol) PHQ-2 Answer Date Recorded PHQ-2 TOTAL SCORE 0 01/23/2024 Exercise Vital Sign Answer Date Recorde d Days of Exercise per Week 3 days 2018 Minutes of Exercise per Session 40 min 12/12/2018 Social Connections Answer Date Recorded Do you often feel lonely or isolated from those around you? 0 01/23/2024 Financial Resource Strain Answer Date R ecorded Difficulty of Paying Living Expenses 3 01/23/2024 Difficulty of Paying Living Expenses Not on file 01/23/2024 Food Insecurity Answer Date Recorded Do you worry your food will run out before you are able to buy more? 1 01/23/2024 Transportation Needs Answer Date Record ed Does lack of transportation keep you from medica l appointments? 1 01/23/2024 Does lack of transportation keep you from work, meetings or getting things that you need? 1 01/23/2024 Housing Stability Answer Date Recorded What is your housing situation today? 1 01/23/2024 Utilities Answer Date Recorded Do you have trouble paying f or utilities (for example, heat, electricity, water, phone)? 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 Gender Identity Not on file Sexual Orientation Not on file Occupation Industry Job Start Date Job End Date retired Not on file Not on file Not on file Obstetrics History Para Term AB IAB SAB Ectopic Multiple Livin g Live Births 3 3 3 0 0 0 0 0 0 3 Date Outcome GA Total Labor Labor/2nd/3rd Weight Sex Type Anes PTL Zita A1 A5 Name Clin Term Term Term Last Filed Vital Signs Vital Sign Reading Time Taken Comments Blood Pressure 140/64 11/21/2024 1:39 PM CDT Pulse 72 11/21/2024 1:38 PM CDT Temperature 36.2 C (97.2 F) 06/21/2023 8:01 AM CDT Respiratory Rate 12 12/12/2023 10:52 AM CDT Oxygen Saturation 95% 11/21/2024 1:38 PM CDT Inhaled Oxygen Concentration - - Weight 68 kg (150 lb) 10/29/2024 9:17 AM CDT Height 163.8 cm (5' 4.5) 11/21/2024 1:38 PM CDT Body Mass Index 25.35 01/23/2024 2:13 PM WAREHOUSE FOREMAN Plan of Treatment Upcoming Encounters Date Type Department Care Team (Late st Contact Info) Description 01/22/2025 9:20 AM WAREHOUSE FOREMAN [facility] [address] [place] [address] Stu Garcia MD [address] [place] [address] Health Maintenance Due Date Last Done Comments Tetanus booster 09/03/2019 09/02/2009, 06/17/1997 RSV vaccine for adults or (1 - 1-dose 75+ series) 2022 COVID-19 vaccine series ( season) 2024 01/09/2021, 06/10/2020, 05/20/2020 Influenza Vaccine (#1) 2024 , 01/12/2023, 01/22/2022, Additional history exists BMI (ht and wt on same day) for age 18+ 01/22/2025 01/23/2024, 11/08/2023, 10/12/2023, Additional history exists Depression screening for age 12+ 01/22/2025 01/23/2024, 08/05/2023, 01/12/2023, Additional history exists Medicare Wellness for age 65+ 01/23/2025 01/23/2024, 01/12/2023, 01/11/2022, Additional history exists Hepatitis B series for 19+ Aged Out 06/18, 01/22/2000, 12/25/1999 No longer eligible based on patient's age to complete this topic Hepatitis C screening for age 18-79 Completed 10/09/2014 Pneumococcal series for age 50+ Completed 10/09/2014, 02/24/2012 Zoster (shingles) series for age 50+ Completed 11/30/2019, 01/03/2019, 12/17/2014 DEXA/DXA scan for age 65+ Completed 2023, 02/20/2021, 10/03/2012 Goals Goal Patient Goal Type Associated Problems Recent Progress Patient-Stated? Author BLOOD PRESSURE - MAINTAINS BP less than 140/90 Blood Pressure No Yojana Hampton MD Procedures Procedure Name Priority Date/Time Associated Diagnosis Comments US CAROTID DUPLEX BILATERAL Routine 11/21/2024 1:27 PM CDT Stenosis of right carotid artery VITAMIN B12 Routine 10/29/2024 9:12 AM CDT High risk medication use HEMOGLOBIN A1C MONITORING (POCT) Routine 10/29/2024 9:11 AM CDT Controlled type 2 diabetes mellitus with complication, without long-term current use of insulin (HC) XR DXA BONE DENSITY 2 SITES AXIAL Routine 01/25/2024 10:14 AM WAREHOUSE FOREMAN Menopause ANTI HCV Routine 10/09/2014 7:40 AM CDT Need for hepatitis C screening test from Last 3 Months or Most Recently Relevant to Health Maintenance Results * US CAROTID DUPLEX BILATERAL (11/21/2024 1:27 PM CDT) Anatomical Region Laterality Modality CAROTID, NECK Ultrasound 11/21/2024 12:5 5 PM CDT Narrative 11/23/2024 10:24 PM CDT VASCULAR ULTRASOUND REPORT MOE MIRELES : 1945 Study Date: 11/21/2024 12:55:34 PM Age: 79 years Tech: JAG Gender: F Referring MD: CHIQUIS GRIER Site: [facility] Study performed: Carotid Indication for Study: follow-up known disease TECHNIQUE: The extracranial carotid arteries, vertebral arteries and subclavian arteries were examined per exam protocol with duplex ultrasound, color-flow and spectral Doppler. Flow velocities including peak systolic (PSV), end diastolic (EDV), and velocity ratios if applicable were documented at sites per exam protocol. IMPRESSION: 1. Based on the ICA velocities, ICA/CCA ratio, and 2D images there is plaque causing 50-69% stenosis in the right internal carotid artery and there is plaque causing 50-69% stenosis in the left internal carotid artery. 2. Normal antegrade flow within bilateral vertebral arteries. 3. Elevated velocities indicating stenosis in the right subclavian artery and multiphasic flow in the left subclavian artery consistent with no flow limiting stenosis. COMPARISON: Compared to prior study 12/12/2023, bilateral ICA remain 50-69% (interpreting physician on previous study used different criteria, velocities remain 50-69%). RIGHT FINDINGS: Antegrade flow in the right vertebral artery. Elevated velocities indicating stenosis in the right subclavian artery. LEFT FINDINGS: Antegrade flow in the left vertebral artery. Multiphasic flow in the left subclavian artery consistent with no flow limiting stenosis. MEASUREMENTS: +--------+--------+------+--------+--------+ RIGHT RIGHT LEFT LEFT +--------+--------+------+--------+--------+ PSV cm/s EDV cm/s Vessel PSV cm/s EDV cm/s +--------+--------+------+--------+--------+ 86 11 P. CCA 71 15 +--------+--------+------+--------+--------+ 70 11 D. CCA 66 15 +--------+--------+------+--------+--------+ 183 46 P. ICA 183 43 +--------+--------+------+--------+--------+ 146 31 M. ICA 182 38 +--------+--------+------+--------+--------+ 88 20 D. ICA 105 29 +--------+--------+------+--------+--------+ 98 10 ECA 108 8 +--------+--------+------+--------+--------+ +-----+ +----+ RIGHT LEFT +-----+ +----+ 454 Subclavian Artery (cm/s) 172 +-----+ +----+ 50 Vertebral Artery (cm/s) 32 +-----+ +----+ 2.6 ICA/CCA Ratio 2.8 +-----+ +----+ Jarrett Ortiz MD. Electronically signed on 11/23/2024 10:24:20 PM This study was performed and interpreted by a service accredited by the Intersocietal Accreditation Commission (IAC/Vascular), [email or web address] Report generated by [employer]. Final Procedure Note Jarrett Ortiz MD - 11/23/2024 VASCULAR ULTRASOUND REPORT MOE MIRELES : 1945 Study Date: 11/21/2024 12:55:34 PM Age: 79 years Tech: JOSÉ MIGUEL Gender: F Referring MD: CHIQUIS GRIER Site: [facility] Study performed: Carotid Indication for Study: follow-up known disease TECHNIQUE: The extracranial carotid arteries, vertebral arteries and subclavianarteries were examined per exam protocol with duplex ultrasound,color-flow and spectral Doppler. Flow velocities including peak systolic(PSV), end diastolic (EDV), and velocity ratios if applicable weredocumented at sites per exam protocol. IMPRESSION: 1. Based on the ICA velocities, ICA/CCA ratio, and 2D images there isplaque causing 50-69% stenosis in the right internal carotid artery andthere is plaque causing 50-69% stenosis in the left internal carotidartery. 2. Normal antegrade flow within bilateral vertebral arteries. 3. Elevated velocities indicating stenosis in the right subclavian arteryand multiphasic flow in the left subclavian artery consistent with no flowlimiting stenosis. COMPARISON: Compared to prior study 12/12/2023, bilateral ICA remain 50-69%(interpreting physician on previous study used different criteria,velocities remain 50-69%). RIGHT FINDINGS: Antegrade flow in the right vertebral artery. Elevated velocitiesindicating stenosis in the right subclavian artery. LEFT FINDINGS: Antegrade flow in the left vertebral artery. Multiphasic flow in the leftsubclavian artery consistent with no flow limiting stenosis. MEASUREMENTS: +--------+--------+------+--------+--------+ RIGHT RIGHT LEFT LEFT +--------+--------+------+--------+--------+ PSV cm/s EDV cm/s Vessel PSV cm/s EDV cm/s +--------+--------+------+--------+--------+ 86 11 P. CCA 71 15 +--------+--------+------+--------+--------+ 70 11 D. CCA 66 15 +--------+--------+------+--------+--------+ 183 46 P. ICA 183 43 +--------+--------+------+--------+--------+ 146 31 M. ICA 182 38 +--------+--------+------+--------+--------+ 88 20 D. ICA 105 29 +--------+--------+------+--------+--------+ 98 10 ECA 108 8 +--------+--------+------+--------+--------+ +-----+ +----+ RIGHT LEFT +-----+ +----+ 454 Subclavian Artery (cm/s) 172 +-----+ +----+ 50 Vertebral Artery (cm/s) 32 +-----+ +----+ 2.6 ICA/CCA Ratio 2.8 +-----+ +----+ Jarrett Ortiz MD. Electronically signed on 11/23/2024 10:24:20 PM This study was performed and interpreted by a service accredited by theIntersocietal Accreditation Commission (IAC/Vascular),[email or web address] Report generated by [employer]. Final us Chiquis Grier MD US Final Re sult * (ABNORMAL) VITAMIN B12 (10/29/2024 9:12 AM CDT) [facility] VITAMIN B12 1,243(H) 200 - 1,100 pg/mL [address] [facility] clarke Abrams Blood BLOOD SPECIMEN / Unknown 10/29/2024 9:12 AM CDT 10/29/2024 9:14 AM CDT Narrative [facility] - 10/30/2024 6:46 AM CDT FASTING:YES FASTING: YES Stu Garcia MD CHEMISTRY Final R esult [facility] [address] [place] [address], [address] [facility] [address] [place] [address] * (ABNORMAL) HEMOGLOBIN A1C MONITORING (POCT) (10/29/2024 9:11 AM CDT) Pathologist [facility] POC HEMOGLOBIN A1C 6.5(H) <6.0 % OF TOTAL HGB [facility] Comment: Any point of care results exhibiting inconsistency with the patient's clinical status should be repeated using a different testing method. Blood BLOOD SPECIMEN / Unknown 10/29/2024 9:11 AM CDT 10/29/2024 9:11 AM CDT Stu Garcia MD CHEMISTRY Final R esult Performing Organization Address City/[facility]/ZIP Co de Phone Number [address] [address], [address], [place] [address] * XR DXA BONE DENSITY 2 SITES AXIAL (01/25/2024 10:14 AM WAREHOUSE FOREMAN) Anatomical Region Laterality Modality Spine, HIPS, HIPL, HIPR Other Impressions 01/30/2024 5:16 AM WAREHOUSE FOREMAN Osteopenia. RECOMMENDATIONS: The National Osteoporosis Foundation recommends pharmacologic treatment for patients with T-scores of -2.5 or less, patients with prior history of fragility fractures, or patients with 10-year probability of greater than 3% at hips or greater than 20% of suffering major osteoporotic fractures. Recommend continued optimization of calcium and vitamin D intake through dietary means and/or supplementation and regular exercise. Paco Onofre M.D. Diagnostic/Neuroradiologist [email or web address] LOI/bhm Narrative 01/30/2024 5:16 AM WAREHOUSE FOREMAN For Patients: Results are automatically released to your [employer] account once available, in compliance with federal regulations. This means that you may see your results before your provider has had a chance to review them. Please allow 2-3 business days for your provider to comment on the results. XR DXA Bone Mineral Density (BMD) EXAM LOCATION: [facility] [place] [address] PATIENT NAME: Moe Mireles DATE OF : 1945 EXAM DATE: 01/25/2024 REQUESTING PROVIDER: Stu Garcia MD GENDER AT : female HEIGHT: 5 feet 4 inches WEIGHT: 145 pounds MENOPAUSAL STATUS: Postmenopausal RACE/ETHNICITY: White RISK FACTORS: Height Loss (2 inches or more), White Race, and Diabetes CURRENT MEDICATION FOR BONE LOSS: NONE INDICATION: Screening for osteoporosis COMPARISON DATE(S): None DXA scans are compared to prior studies for a patient only when the two (or more) studies were performed on the same scanner. It is not possible to compare data generated on one scanner to data from another because there are not standards in DXA equipment. This applies even if the two scanners are made by the same credit risk officer. PROCEDURE: Dual-energy x-ray absorptiometry performed with routine technique. Reporting is completed in the form of a T-score. The T-score represents the standard deviation from peak bone mass based on young healthy adult. A Z-score is used for diagnosis in premenopausal women, and for men under the age of 50. FINDINGS: RESULT LUMBAR SPINE L1 - L4 BMD: 1.109 g/cm2 T-Score: + 0.6 Z-Score: + 3.1 RESULTS FEMUR Left femoral neck BMD: 0.582 g/cm2 T-Score: - 2.4 Z-Score: - 0.2 Left total hip BMD: 0.737 g/cm2 T-Score: - 1.7 Z-Score: + 0.2 Right femoral neck BMD: 0.630 g/cm2 T-Score: - 2.0 Z-Score: + 0.2 Right total hip BMD: 0.771 g/cm2 T-Score: - 1.4 Z-Score: + 0.5 WHO Criteria: Normal: T-score at or above -1 SD Osteopenia: T-score between -1.1 and -2.4 SD Osteoporosis: T-score at or below -2.5 SD LEFT: FRAX RISK CALCULATION (USED FOR OSTEOPENIA ONLY): 10-year probability of major osteoporotic fracture: 17%. 10-year probability of hip fracture: 5.2%. RIGHT: FRAX RISK CALCULATION (USED FOR OSTEOPENIA ONLY): 10-year probability of major osteoporotic fracture: 14%. 10-year probability of hip fracture: 3.7%. us Stu Garcia MD DEXA Final R esult * ANTI HCV [[id number]] (10/09/2014 7:40 AM CDT) HEPATITIS C ANTIBODY Non-Reacti ve Non-Reacti ve 10/09/2014 4:53 PM CDT [facility] Blood specimen (specimen) BLOOD SPECIMEN / Unknown Add On / Unknown 10/09/2014 7:40 AM CDT 10/09/2014 9:34 AM CDT Narrative [facility] - 10/09/2014 4:53 PM CDT Antibodies to HCV not detected; does not exclude the possibility of exposure to HCV. us Yojana Hampton MD SEND OUTS Audrey vale Result [facility] 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
--- NOTE | 2024-12-26 14:21 | CRLHL7_ITS ---
For Patients: As a result of the Century Cures Act, medical imaging exams and procedure reports are released immediately into your electronic medical record. You may view this report before your referring provider. If you have questions, please contact your health care provider. Indication: Fall, pain and swelling to left ankle. Technique: Left ankle 3 views. Comparison: None. Findings: Bones: Acute, slightly displaced fracture of the distal fibula at the level of the ankle mortise joint. No other fracture identified. Alignment is otherwise normal. No aggressive osseous lesion. Small plantar calcaneal enthesophyte. Joint spaces: Unremarkable. Soft tissues: Soft tissue swelling about the ankle, particularly the lateral malleolus. Scattered vascular calcifications. Impression: Acute, slightly displaced fracture of the distal fibula at the level of the ankle mortise joint (Irizarry B). Dictated by Chaka Woodall MD @ 12/26/2024 3:00:34 PM (Electronically Signed)
[2024-12-26 14:22] VITALS: BP 137/82; PULSE 89; RESP 18; TEMP 37.1; O2SAT 96; BMI 24.6
--- NOTE | 2024-12-26 15:06 | ED_ITS ---
HPI - Extremity Injury (Lower) General Chief Complaint: Extremity Pain/Injury, Lower Stated Complaint: injured ankle Time Seen by Provider: 12/26/24 14:22 History of Present Illness HPI Narrative: This 79-year-old female comes in with an injury to her left ankle that occurred just prior to arrival. She was ambulating down some steps and misstepped on the last step causing her to fall with an injury to her left ankle. She does not report any other injury. She did not hit her head or have loss of consciousness. She has significant swelling that occurred rather quickly after this injury. Related Data Home Medications ?Medication ?Instructions ?Recorded ?Confirmed aspirin 81 mg tablet,delayed 81 mg PO DAILY 07/12/22 0 07/12/22 release Held on 07/13/22. Instructions: Resume on 08/13/22. cyclobenzaprine 5 mg tablet 5 mg PO 3XD PRN 07/12/22 0 07/12/22 cyclosporine 0.05 % eye drops in a 1 drp ophthalmic (e ye) BID 07/12/22 07/12/22 dropperette (Restasis) losartan 25 mg tablet 25 mg PO DAILY 07/12/22 0504/05 Held on 07/13/22. Instructions: Resume on 07/16/22. metformin 500 mg tablet 1,000 mg PO BID 07/12/2204/05 metoprolol tartrate 25 mg tablet 25 mg PO BID 07/12/22 07/12/22 Held on 07/13/22. Instructions: Resume on 07/16/22. pantoprazole 40 mg tablet,delayed 40 mg PO DAILY 07/1207/12/22 release rosuvastatin 40 mg tablet 40 mg PO QPM 07/12/22 sucralfate 1 gram tablet (Carafate) 1 g PO ACHS 07/12/22 Previous Rx's ?Medication ?Instructions ?Recorded aspirin 325 mg tablet,delayed 325 mg PO DAILY 30 days #30 tabs 07/13/22 release clopidogrel 75 mg tablet 75 mg PO DAILY 30 days #30 t abs 07/13/22 Allergies Allergy/AdvReac Type Severity Reaction Status Date / Time tegaderm Allergy Uncoded 07/12/22 11:06 Review of Systems Status of ROS: Reports: 10 or more systems reviewed and unremarkable except as noted in History and below Narrative: Constitutional: No fevers, no weight gain or loss. Eyes: No discharge. No vision changes. HENT: No congestion, no sore throat, no ear pain. Cardiovascular: No chest pain, no palpitations. Respiratory: No shortness of breath, no wheezes, no cough. Gastrointestinal: No abdominal pain, no vomiting, no diarrhea. Genitourinary: No dysuria, no hematuria. Musculoskeletal: Left ankle injury as described above. Skin: No rashes, no pruritis. Neurological: No dizziness, weakness, sensory change, speech change. Endo/Heme/Allergies: No bruising or bleeding. No polydipsia. Pysch: no suicidality, no anxiety, no insomnia. All other systems reviewed and are negative. [facility] Medical History (Updated 12/26/24 @ 15:17 by Pablo Ramirez MD) Normal esophagogastroduodenoscopy (EGD) ?Z01.89 - Encounter for other specified special examinations (ICD-10) Nasal bone fx-closed ?S02.2XXA - Fracture of nasal bones, initial encounter for closed fracture (ICD-10) Lumbar degenerative disc disease ?M51.36 - Other intervertebral disc degeneration, lumbar region (ICD-10) Diabetes mellitus ?E11.9 - Type 2 diabetes mellitus without complications (ICD-10) Non-STEMI (non-ST elevated myocardial infarction) ?I21.4 - Non-ST elevation (NSTEMI) myocardial infarction (ICD-10) Stress incontinence ?N39.3 - Stress incontinence (female) (male) (ICD-10) Diabetic retinopathy ?E11.319 - Type 2 diabetes mellitus with unspecified diabetic retinopathy without macular edema (ICD-10) Branch retinal artery occlusion ?H34.239 - Retinal artery branch occlusion, unspecified eye (ICD-10) Restless legs ?G25.81 - Restless legs syndrome (ICD-10) Allergic rhinitis ?J30.9 - Allergic rhinitis, unspecified (ICD-10) Gastroesophageal reflux disease ?K21.9 - Gastro-esophageal reflux disease without esophagitis (ICD-10) Hyperlipidemia ?E78.5 - Hyperlipidemia, unspecified (ICD-10) Hypertension ?I10 - Essential (primary) hypertension (ICD-10) Surgical History (Updated 07/12/22 @ 18:13 by Paco Moseley MD) H/O arthroscopic knee surgery ?Z98.890 - Other specified postprocedural states (ICD-10) History of tonsillectomy ?Z90.89 - Acquired absence of other organs (ICD-10) History of cataract surgery ?Z98.49 - Cataract extraction status, unspecified eye (ICD-10) History of hysterectomy ?Z90.710 - Acquired absence of both cervix and uterus (ICD-10) H/O colonoscopy ?Z98.890 - Other specified postprocedural states (ICD-10) History of appendectomy ?Z90.49 - Acquired absence of other specified parts of digestive tract (ICD- 10) Family History (Updated 07/12/22 @ 18:32 by Paco Moseley MD) Mother Uterine cancer Dementia Father Dementia Social History (Updated 07/12/22 @ 18:33 by Paco Moseley MD) Narrative: She lives with her . is healthcare power of family law attorney. They live in [place]. She does not drink alcohol. She has a remote history of smoking Highest level of school completed/degree received: Master's degree Smoking Status: Never smoker Do you use any of these nicotine containing products: None Second hand tobacco smoke exposure: No How often do you have a drink containing alcohol: never How often do you have six or more drinks on one occasion: Never AUDIT-C Alcohol total score: 0 Non-prescribed substance use: denies use Caffeine: No service: No Exam Narrative: Exam Narrative: Constitutional: Well-developed, well-nourished, no acute distress. HEENT: Normocephalic, atraumatic. Neck: Normal range of motion. Nontender. Supple. Heart: Regular. No murmurs. Normal rate. Intact distal pulses. Lungs: Clear to auscultation. No chest discomfort. No wheezes, rhonchi, or rales. Abdomen: Normal bowel sounds. Nontender. No rebound tenderness. Genitalia: Deferred. Back: No midline tenderness. Normal range of motion. Extremities: Left ankle has diffuse swelling with bruising. Tenderness over the lateral malleolus. Skin: Intact. No rash. Warm. No erythema or pallor. Neurologic: No altered sensation. No weakness. Alert and oriented. Psychiatric: No suicidality. No anxiety or depression. No insomnia. Nursing notes and vitals signs are reviewed. Const: Vital Signs, click to edit/add: Vital Signs - 24 hr 12/26/24 14:22 Temperature 98.7 F Pulse Rate [Right Pulse Oximeter] 89 Respiratory Rate 18 Blood Pressure [Ri ght Upper Arm] 137/82 Pulse Oximetry 96 Course Vital Signs Vital signs: Initial Vital Signs Temperature 98.7 F 12/26/24 14:22 Temperature Source Temporal Artery Scan 12/26/24 14:22 Pulse Rate 89 12/26/24 14:22 Respiratory Rate 18 12/26/24 14:22 Blood Pressure 137/82 12/26/24 14:22 Blood Pressure Mean 100 12/26/24 14:22 Blood Pressure Position Sitting 12/26/24 14:22 Pulse Oximetry 96 12/26/24 14:22 Vital Signs Temperature 98.7 F 12/26/24 14:22 Pulse Rate 89 12/26/24 14:22 Respiratory Rate 18 12/26/24 14:22 Blood Pressure 137/82 12/26/24 14:22 Pulse Oximetry 96 12/26/24 14:22 Temperature 98.7 F 12/26/24 14:22 Pulse Rate 89 12/26/24 14:22 Respiratory Rate 18 12/26/24 14:22 Blood Pressure 137/82 12/26/24 14:22 Pulse Oximetry 96 12/26/24 14:22 MDM - Extremity Injury (Lower) MDM Narrative Medical decision making narrative: This patient has an injury to her left ankle. X-ray images show a fracture of the distal fibula which has minimal displacement. The ankle mortise is intact without any instability. The patient received a cam walker boot and crutches. She plans to use Tylenol and ibuprofen as needed and directed. I advised her to follow-up with orthopedic clinic for recheck. Imaging Data L Ankle XR: Radiologist's impression: Acute, slightly displaced fracture of the distal fibula at the level of the ankle mortise joint (Irizarry B). Discharge Plan Discharge Clinical Impression: Ankle fracture Patient Disposition: Home w/ Parent or Adult Condition: Unchanged Additional Instructions: Wear walking boot and use crutches for ambulating. Use [id number] medicines as needed and directed for symptomatic relief. Follow-up with orthopedic clinic for recheck. Call [phone] for appointment. Prescriptions: No Action metformin 500 mg tablet 1,000 mg PO BID aspirin 81 mg tablet,delayed release (DR/EC) 81 mg PO DAILY pantoprazole 40 mg tablet,delayed release (DR/EC) 40 mg PO DAILY losartan 25 mg tablet 25 mg PO DAILY cyclobenzaprine 5 mg tablet 5 mg PO 3XD PRN cyclosporine [Restasis] 0.05 % dropperette 1 drp ophthalmic (eye) BID rosuvastatin 40 mg tablet 40 mg PO QPM metoprolol tartrate 25 mg tablet 25 mg PO BID sucralfate [Carafate] 1 gram tablet 1 g PO ACHS clopidogrel 75 mg Tablet 75 mg PO DAILY 30 Days Qty: 30 0RF aspirin 325 mg Tablet,Delayed Release (Dr/Ec) 325 mg PO DAILY 30 Days Qty: 30 0RF Follow Up/Referrals: Provider,Not a Local [Primary Care Provider, Family Practice] Stand Alone Forms: [facility] Info Instructions
== END 2024-12-26 15:51 | disposition home or self-care (01) ==
LOC: ED 15:25
PROVIDERS: Emergency Provider Emergency Medicine Emergency Medical Services
DX: S82.432A Displaced oblique fracture of shaft of left fibula, initial encounter for closed fracture (principal); W10.9XXA Fall (on) (from) unspecified stairs and steps, initial encounter
CPT/HCPCS: 73610; 99283; 99284